=== PATIENT | male | born 1945 | race Caucasian/White ===

== ENCOUNTER 2016-10-28 05:34 | Observation (INO) ==
[2016-10-28] MEDS ORDERED: 0.9 % Sodium Chloride 1,000 ML IVC SCH ×2 (05:45→08:27)
--- NOTE | 2016-10-28 05:49 | Emergency Department Note ---
Disposition Clinical Impression: CLL (chronic lymphocytic leukemia), Diabetes, Debility, UTI (urinary tract infection), Dehydration, Lung cancer, Leukocytosis, Vertigo Disposition: Admitted As Inpatient Condition: Fair Referrals: Jaret Chu MD [Primary Care Provider] - Forms: ED Satisfaction Letter Time of Disposition: 07:28 (ulisses [facility] OBSV) Dizziness HPI - General Chief Complaint: ED Dizziness Stated Complaint: dizzy and weak Time Seen by Provider: 10/28/16 05:35 Source: patient Mode of arrival: ambulatory Limitations: no limitations Nursing Notes Reviewed: Yes Vital Signs Reviewed: Yes - History of Present Illness HPI Narrative: 70-year-old male recently hospitalized for pneumonia UTI and possible sepsis who presents to the emergency room is now having vertiginous type symptoms that been going on for the past day to the point now where he is unable to get up and move about denies shortness of breath chest pain cough cold or flu symptomsI just do not feel well he denies though anything new headache any neck pain neck stiffness any weakness in the extremities denies any other rashes or lesions currently getting antibiotics iv at home According to family patient has multiple types of cancer not receive chemotherapy this week and was also supposed to have a PET scan this past week Pt Subjective Complaint: weakness Onset (ago): day(s) Timing: gradual onset Description: sense of movement History of similar episodes: No History of trauma: No Severity: moderate Improves with: remaining still Worsens with: movement Associated symptoms: Reports: nausea, other (vertgo). Denies: ataxia, chest pain, confusion, diaphoresis, fever, chills, malaise, rash, shortness of breath , syncope, weakness, vision changes, vomiting, palpitations - Related Data Home Medications Medication Instructions Recorded Confirmed Clopidogrel [Plavix] 75 mg PO DAILY 09/24/14 10/28/16 Ondansetron HCl [Zofran] 4 mg PO Q4-6H PRN 01/06/15 10/28/16 Docusate [Colace] 100 mg PO DAILY 08/28/15 10/28/16 Guaifenesin [Mucinex] 600 mg PO BID 08/28/15 10/28/16 Lactobacillus Acidophilus 1 mg PO DAILY 08/28/15 10/28/16 [Acidophilus Probiotic] Lactulose [Kristalose] 20 gm PO AD 08/28/15 10/28/16 Loratadine [Claritin] 10 mg PO DAILY 08/28/15 10/28/16 Pantoprazole Sodium [Protonix] 40 mg PO DAILY 08/28/15 10/28/16 Polyethylene Glycol 1000 500 gm PO DAILY 08/28/15 10/28/16 [Polyethylene Glycol] Albuterol Sulfate [Albuterol 1 puff IH AD 10/24/15 10/28/16 Inhaler] Potassium Chloride [Klor-Con 10] 10 meq PO DAILY 04/18/16 10/28/16 glipiZIDE [Glucotrol] 2.5 mg PO BIDWM 04/18/16 10/28/16 Furosemide [Lasix] 20 mg PO DAILY 06/07/16 10/28/16 LORazepam [Ativan] 1 mg PO TID PRN 10/19/16 10/28/16 Aspirin [Lo-Dose Aspirin EC] 81 mg PO DAILY 10/21/16 10/28/16 Previous Rx's Medication Instructions Recorded Budesonide/Formoterol 160/4.5 2 puff IH BID #1 inhaler 09/24/14 [Symbicort] Tiotropium [Spiriva] 18 mcg IH DAILY #1 inh 09/24/14 dilTIAZem HCl [Cardizem] 60 mg PO Q8HR #60 tablet 09/24/14 Atorvastatin [Lipitor] 80 mg PO HS #30 tablet 07/05/15 Metoprolol [Lopressor] 50 mg PO BID #60 tablet 07/05/15 Nitroglycerin 0.4 mg SL Q5MIN PRN #30 tab.subl 07/05/15 Doxycycline 100 mg PO BID #14 10/24/16 Uyuhwkuvzxmt-Mfbp-Lznnuyge,Iso 3.375 gm IV Q8H #21 froz.piggy 10/24/16 [Zosyn 3.375 gm/50 ml Galaxy] Allergies Allergy/AdvReac Type Severity Reaction Status Date / Time ipratropium [From DuoNeb] AdvReac Vomiting Verified 10/28/16 05:40 roflumilast [From Daliresp] AdvReac Vomiting Verified 10/28/16 05:40 All systems ED: reviewed and negative except as stated. Review of Systems: As Per HPI Constitutional: Reports: weakness. Denies: fever, chills Eyes: Denies: eye pain, eye discharge ENT ED: Denies: ear pain, throat pain Cardiovascular: Denies: chest pain, palpitations Respiratory: Denies: cough, dyspnea, wheezes Gastrointestinal: Denies: abdominal pain, nausea, vomiting Genitourinary: Denies: urgency, dysuria, frequency Musculoskeletal: Denies: back pain, neck pain Integumentary: Denies: rash, abrasion Neurological: Reports: weakness, vertigo. Denies: headache Psychiatric: Denies: anxiety, depression Endocrine: Denies: fatigue Hematological/Lymphatic: Reports: easy bruising. Denies: easy bleeding Allergic/Immunologic: Denies: facial swelling Past Medical History - Past Medical History Attestation: Yes The following information was validated with the patient. Source: patient, old records reviewed, obtained from family, nursing notes reviewed Medical history: Reports: arthritis, cancer (Lung cancer multiple sites CLL skin cancer), CHF, COPD, coronary artery disease, GERD, hyperlipidemia, hypertension, myocardial infarction, renal disease, other Surgical history: Reports: appendectomy, other Psychiatric history: Reports: no psych history - Social History Smoking Status: Former smoker Smokeless Tobacco Status: No Alcohol use: Reports: none Drug use: Reports: none Physical Exam - General Limitations: no limitations General appearance: alert, in no apparent distress - Head Head exam: atraumatic, normocephalic, normal inspection - Eye Eye exam: Present: normal appearance, PERRL, EOMI - ENT ENT exam: normal exam, normal oropharynx, mucous membranes moist, TM's normal bilaterally, normal external ear exam, other (waxy skin) - Neck Neck exam: Present: normal inspection, full ROM, trachea midline - Chest Chest inspection: Present: normal inspection, symmetric chest wall rise - Respiratory Respiratory exam: Present: normal lung sounds bilaterally - Cardiovascular Cardiovascular exam: Present: regular rate, normal rhythm, normal heart sounds - Abdominal Exam Abdominal exam: Present: soft, Non-Tender, normal bowel sounds. Absent: mass, pulsatile mass - Extremities Exam Extremities exam: Present: normal inspection, full ROM, normal capillary refill , other (PICC line left upper arm). Absent: tenderness, pedal edema, joint swelling, calf tenderness - Back Exam Back exam: Present: normal inspection, full ROM. Absent: muscle spasm - Neurological Exam Neurological exam: Present: alert, oriented X3, CN II-XII intact - Psychiatric Psychiatric exam: Present: normal affect, normal mood - Skin Skin exam: Present: dry, intact, normal color, other (moist almost waxy) Course Course Narrative: Patient seen and examined laboratory data ordered CT of the head ordered - Reevaluation(s) Reevaluation #1: Spoke with Dr. Elizalde explained the findings his recent hospitalization he agreed he has asked that we do add Rocephin onto the antibiotics that he is already receiving at this time which we will go ahead and start having already received the vancomycin here in the ER and continue with the meclizine Vital Signs Temperature 98.8 F 10/28/16 05:35 Pulse Rate 88 10/28/16 05:35 Respiratory Rate 16 10/28/16 05:35 Blood Pressure 149/74 10/28/16 05:35 O2 Sat by Pulse Oximetry 92 10/28/16 05:35 Temperature 98.8 F 10/28/16 05:35 Pulse Rate 96 10/28/16 06:26 Respiratory Rate 19 10/28/16 06:26 Blood Pressure 154/72 10/28/16 06:26 O2 Sat by Pulse Oximetry 92 10/28/16 06:26 Oxygen Delivery Oxygen Delivery Nasal Cannula Dizziness - MDM Narrative Medical decision making narrative: Metabolic anemic infectious etiologies - Differential Diagnosis Likely: vertebral basilar insufficiency, acute vestibular neuronitis - Medical Records Medical records reviewed: Yes I reviewed the patient's medical records. - Lab Data Lab results reviewed: Yes I reviewed the patient's lab results. Lab Results 10/28/16 Range/Units 06:29 VBG Lactic Acid 1.4 (0.5-2.2) mmol/L - Radiology Data Radiology results reviewed: Yes I reviewed the patient's radiology results. - EKG Data EKG attestation: Yes I reviewed and interpreted this EKG. EKG results narrative: EKG sinus tach rate of 101 NV 138 QRS 100 QT 313 axis LXXIV EKG shows evidence of appears to be consistent with previous myocardial infarction posterior extension similar to the EKG from 10/21/2016 with T waves now inverted in V5 and V6 at which time they were upright Critical Care Time Critical Care Time: No NIH Stroke Scale - Level of Consciousness LOC: Drowsy, but arousable - LOC Questions LOC Questions: Answers both correctly - LOC Commands LOC Commands: Performs both correctly - Best Gaze Best Gaze: Normal - Visual Visual: No visual loss - Facial Palsy Facial Palsy: Normal - Motor Arms Motor Arm-Left: No drift for 10 seconds Motor Arm-Right: No drift for 10 seconds - Motor Legs Motor Leg-Left: Drift, does NOT hit bed Motor Leg-Right: Drift, does NOT hit bed - Limb Ataxia Limb Ataxia: Absent of affected limb too weak to perform exam - Sensory Sensory: Normal - Best Language Best Language: No aphasia - Dysarthria Dysarthria: Normal - Extinction and Inattention Extinction and Inattention: Normal - NIHSS Total Score NIHSS Total Score: 3
[2016-10-28 06:38] LABS: Hematocrit 30.9 % (37.5-50.1); Hemoglobin 9.2 g/dL (12.9-16.9); Mean Corpuscular HGB Conc 29.8 g/dL (31.6-35.5); Mean Corpuscular Hemoglobin 26.7 pg (28.0-33.3); Mean Corpuscular Volume 89.6 fL (83.0-100.0); Mean Platelet Volume 9.5 fL (9.4-12.4); Nucleated Red Blood Cells 0.1 /100 WBC (0); Platelet Count 208 K/mcL (140-400); Red Blood Count 3.45 M/mcL (4.19-5.50); Red Cell Distribution Width 17.6 % (11.5-14.5)
[2016-10-28 06:45] LABS: INR 1.2; Prothrombin Time 12.6 Seconds (9.4-12.1)
[2016-10-28] MEDS ORDERED: Vancomycin 1,000 MG in D5% in Water 250 ML IVPB ONE (06:45)
[2016-10-28 06:48] LABS: Activated Partial Thrombo Time 37.9 Seconds (26.0-36.0)
[2016-10-28 07:00] LABS: Alanine Aminotransferase 26 Units/L (0-55); Albumin 2.7 g/dL (3.5-5.0); Albumin/Globulin Ratio 0.7 (1.1-2.2); Alkaline Phosphatase 205 Units/L (38-126); Aspartate Amino Transferase 19 Units/L (5-34); BUN/Creatinine Ratio 16 (6-26); Bilirubin,Total 0.3 mg/dL (0.2-1.2); Blood Urea Nitrogen 21 mg/dL (8-26); Calcium 9.5 mg/dL (8.6-10.8); Carbon Dioxide 26 mEq/L (19-29); Chloride 105 mEq/L (98-109); Globulin 4.1 g/dL (2.4-3.5); Glucose 134 mg/dL (70-99); Osmolality,Calculated 305 (280-300); Potassium 4.3 mEq/L (3.5-4.5); Sodium 145 mEq/L (136-145); Total Protein 6.8 g/dL (6.0-8.3); eGFR For African Americans > 60 (> 60); eGFR For Non-African Americans 52 (> 60)
[2016-10-28 07:19] LABS: Bilirubin,Urine Negative (Negative); Blood,Urine Trace-intact (Negative); Clarity,Urine Cloudy (Clear); Color,Urine Yellow (Yellow); Glucose,Urine (UA) Normal (Normal); Ketones,Urine Negative (Negative); Leukocyte Esterase,Urine Small (Negative); Nitrite,Urine Negative (Negative); Protein,Urine 30 mg/dL (Neg-Trace); Specific Gravity,Urine 1.025 (1.010-1.025); Urobilinogen,Urine Normal (Normal)
[2016-10-28 07:19] LABS: Lymphocytes # 6.3 K/mcL (0.6-4.6); Monocytes # 0.3 K/mcL (0.0-1.3); Neutrophils # 7.1 K/mcL (1.6-8.9)
[2016-10-28 07:20] LABS: Rouleaux Present (Not Present)
[2016-10-28 07:25] LABS: Bacteria,Urine Moderate per hpf (None-Few); Hyaline Casts,Urine Few per lpf (None-Few); Mucus,Urine Few (Few); Squamous Epithelial Cell,Urine Few per lpf (None-Few); WBC,Urine 30-50 per hpf (0-3)
[2016-10-28] MEDS ORDERED: Nitroglycerin 0.4 MG TAB.SUBL SL PRN (08:27)
[2016-10-28] MEDS ORDERED: D5% in Water 1,000 ML IVC PRN (08:27)
[2016-10-28] MEDS ORDERED: NON-FORMULARY MEDICATION 1 EACH EACH (Piperacillin-Tazo-Dextrose,Iso [Zosyn 3.375 Gm/50 Ml IV SCH (08:27)
[2016-10-28] MEDS ORDERED: dilTIAZem HCl 60 MG TABLET PO SCH (08:27)
[2016-10-28] MEDS ORDERED: *HR* Dextrose 50 % in Water (Syg) 50 ML SYRINGE IVP PRN (08:27)
[2016-10-28] MEDS ORDERED: Naloxone 0.4 MG/ML INJ IVP PRN (08:27)
[2016-10-28] MEDS ORDERED: Dextrose Gel 15 GM PO PRN ×2 (08:27)
[2016-10-28] MEDS ORDERED: Ondansetron 4 MG/2 ML VIAL IVP PRN (08:27)
[2016-10-28] MEDS ORDERED: Ibuprofen 400 MG TABLET PO PRN (08:27)
[2016-10-28] MEDS ORDERED: Acetaminophen 325 MG TABLET PO PRN (08:27)
[2016-10-28] MEDS ORDERED: Lactulose Oral Soln 20 GM/30 ML UDC PO PRN (09:00)
[2016-10-28] MEDS ORDERED: Furosemide 20 MG TABLET PO SCH (09:00)
[2016-10-28] MEDS: Doxycycline 100 MG CAPSULE PO SCH ×2 (09:56→19:38)
[2016-10-28] MEDS: Aspirin Enteric Coated 81 MG Tablet PO SCH (09:56)
[2016-10-28] MEDS: Lactobacillus 1 EACH CAP.SPRINK PO SCH (09:57)
[2016-10-28] MEDS ORDERED: Budesonide/Formoterol 160/4.5 MDI IH SCH (10:00)
[2016-10-28] MEDS ORDERED: Vancomycin 500 MG in D5% in Water (Mini-Bag+) 100 ML IVPB ONE (10:00)
[2016-10-28] MEDS: *HR* GlipiZIDE 5 MG TABLET PO SCH ×2 (10:06→19:22)
[2016-10-28] MEDS: *HR* LORazepam 1 MG TABLET PO PRN (10:06)
[2016-10-28] MEDS: Insulin LISPRO 300 UNITS/3 ML VIAL SQ SCH ×3 (10:14→16:46)
[2016-10-28] MEDS ORDERED: Levalbuterol Neb 1.25 MG/3 ML IH SCH (11:30)
[2016-10-28] MEDS: Tiotropium 18 MCG inhalation IH SCH (11:47)
--- NOTE | 2016-10-28 11:50 | Internal Med History&Physical ---
Date of Encounter: 10/28/16 Time of Encounter: 10:55 Assessment and Plan (1) Vertigo Current visit: Yes Status: Acute CT head was unremarkable. He will be given meclizine when necessary. IV fluids will be given. (2) Heart failure Current visit: Yes Status: Chronic He will be given IV Lasix and started on isosorbide. Metoprolol will be continued. 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 We will recheck in a.m. Suspect due primarily to chronic kidney disease. Qualifiers: Anemia type: unspecified type Qualified Code(s): D64.9 - Anemia, unspecified (4) CKD (chronic kidney disease) stage 3, GFR 30-59 ml/min Current visit: Yes Status: Chronic We will monitor renal indices periodically. (5) UTI (urinary tract infection) Current visit: Yes Status: Acute Continue doxycycline and IV Zosyn. He was also ordered vancomycin for possible pneumonia. Lactobacillus has been ordered. Qualifiers: Urinary tract infection type: site unspecified Hematuria presence: with hematuria Qualified Code(s): N39.0 - Urinary tract infection, site not specified; R31.9 - Hematuria, unspecified (6) Diabetes Current visit: Yes Status: Chronic Hemoglobin A1c was 6.7% on 07/11/2016. Continue Glucotrol and Accu-Cheks with SSI. Qualifiers: Diabetes mellitus type: type 2 Diabetes mellitus complication status: with kidney complications Diabetes mellitus complication detail: with chronic kidney disease Diabetes mellitus supervisor long goods insulin use: without senior care use Chronic kidney disease stage: stage 3 (moderate) Qualified Code(s): E11.22 - Type 2 diabetes mellitus with diabetic chronic kidney disease; N18.3 - Chronic kidney disease, stage 3 (moderate) Internal Medicine - H&P: HPI Chief complaint: Vertigo Admitted From: Home Plans for Post Hospital Care: Home History of present illness: Mr. Ruvalcaba is a 70 year old male who came to emergency room stating he had vertigo symptoms approximately 0300 as he attempted to go to the bathroom. He was unable to walk and was helped back to bed by the home health nurse. He was given a meclizine with minimal improvement. He came to emergency room and was evaluated and admitted to [facility] floor for ongoing care needs. He denies previous similar episodes recently. He has not had URI symptoms such as sore throat,earache etc. He denies nausea vomiting or diarrhea. Past Med Surg Social Fam HX - Past Medical History Medical history: arthritis, cancer (Lung cancer multiple sites CLL skin cancer) , CHF, COPD, coronary artery disease, GERD, hyperlipidemia, hypertension, myocardial infarction, renal disease, other Psychiatric history: no psych history - Past Surgical History Surgical History: appendectomy, other - Social History Smoking Status: Former smoker Smokeless Tobacco Status: No Alcohol use: none Drug use: none - Family History Father Hx Family Endocrine Disorder: Yes (diabetes) Mother Adopted: No Twin of Family Member: Yes, Fraternal Living Status: Still Living Hx Family Cardiac Disorders: Yes Hx Family Respiratory Disorders: No Hx Family Cancer: No Hx Family GI Disorders: No Hx Family Endocrine Disorder: Yes (diabetes) Hx Family Neuromuscular Disorders: No Hx Family Neurologic Disorders: No Hx Family HEENT Disorders: No Hx Family Autoimmune Disorders: No Internal Medicine - H&P: Meds Budesonide/Formoterol 160/4.5 [Symbicort] 2 puff IH BID #1 inhaler 09/24/14 [Rx] Clopidogrel [Plavix] 75 mg PO DAILY 09/24/14 [History] Tiotropium [Spiriva] 18 mcg IH DAILY #1 inh 09/24/14 [Rx] dilTIAZem HCl [Cardizem] 60 mg PO Q8HR #60 tablet 09/24/14 [Rx] Ondansetron HCl [Zofran] 4 mg PO Q4-6H PRN 01/06/15 [History] Atorvastatin [Lipitor] 80 mg PO HS #30 tablet 07/05/15 [Rx] Metoprolol [Lopressor] 50 mg PO BID #60 tablet 07/05/15 [Rx] Nitroglycerin 0.4 mg SL Q5MIN PRN #30 tab.subl 07/05/15 [Rx] Docusate [Colace] 100 mg PO DAILY 08/28/15 [History] Guaifenesin [Mucinex] 600 mg PO BID 08/28/15 [History] Lactobacillus Acidophilus [Acidophilus Probiotic] 1 mg PO DAILY 08/28/15 [ History] Lactulose [Kristalose] 20 gm PO AD 08/28/15 [History] Loratadine [Claritin] 10 mg PO DAILY 08/28/15 [History] Pantoprazole Sodium [Protonix] 40 mg PO DAILY 08/28/15 [History] Polyethylene Glycol 1000 [Polyethylene Glycol] 500 gm PO DAILY 08/28/15 [History ] Albuterol Sulfate [Albuterol Inhaler] 1 puff IH AD 10/24/15 [History] Potassium Chloride [Klor-Con 10] 10 meq PO DAILY 04/18/16 [History] glipiZIDE [Glucotrol] 2.5 mg PO BIDWM 04/18/16 [History] Furosemide [Lasix] 20 mg PO DAILY 06/07/16 [History] LORazepam [Ativan] 1 mg PO TID PRN 10/19/16 [History] Aspirin [Lo-Dose Aspirin EC] 81 mg PO DAILY 10/21/16 [History] Doxycycline 100 mg PO BID #14 10/24/16 [Rx] Ltgrgciypvkc-Gxvm-Jsepgvoz,Iso [Zosyn 3.375 gm/50 ml Galaxy] 3.375 gm IV Q8H # 21 froz.piggy 10/24/16 [Rx] 3 Allergy/AdvReac Type Severity Reaction Status Date / Time ipratropium [From DuoNeb] AdvReac Vomiting Verified 10/28/16 05:40 roflumilast [From Daliresp] AdvReac Vomiting Verified 10/28/16 05:40 All Systems PM: A 10-system review of systems was performed and is negative for pertinent findings except as documented above in the HPI. Review of systems: Gen.: He states his weight has been stable the past few months Cardiovascular: He has history of hypertension. He reports 2 myocardial infarctions in the past with most recent one June 2015. He had a LAVELLE placed in the mid RCA at the time. There was an occluded proximal RCA in-stent restenosis which was felt to be the culprit lesion. There were previous stents seen in the proximal and mid RCA. LVEF was 55%. He had an echocardiogram June 2015 which showed LVEF of 45-50% with mild LV diastolic dysfunction. There is no significant valvular dysfunction seen. He denies DVT or pulmonary embolus Respiratory: He smoked from age [age] up to 2 packs per day. He has a diagnosis of COPD and wears oxygen at home. He has been diagnosed with GOMEZ but CPAP was removed by the supply company because of noncompliant usage. GI: Denies disorders of his liver gallbladder or exocrine pancreas : He has chronic kidney disease stage III and follows with a [place] systems design engineer. He has a kidney stone. He denies other kidney or bladder disorders. Neurologic: He denies large distribution strokes or seizures. Endocrine: He was diagnosed with DM 2 approximately 2012. He has hyperlipidemia but no known thyroid disease. Hematology/oncology: He was diagnosed with CLL approximately 2 years ago and squamous cell lung cancer approximately 3 years ago. The lung cancer is stage IV. He had squamous cell cancer removed from his lower lip 2013. He was diagnosed with neuroendocrine carcinoma the scalp in 2016. He follows with [facility] oncologist. He has anemia. Psychiatric: He has anxiety but no significant depression or other mental health issues Musk skeletal: He has arthritis but no other documented bone joint or muscle disorders. - Constitutional Vitals: Temp Pulse Resp BP Pulse Ox 97.6 F 98 14 133/65 94 10/28/16 08:25 10/28/16 08:25 10/28/16 08:27 10/28/16 08:27 10/28/16 08:25 Exam: Gen.: He is a well-developed well-nourished male who appears slightly dyspneic at rest HEENT: Head is atraumatic and normocephalic. Eyes: EOMI. There is no scleral icterus. Mouth: Mucosa is slightly dry Neck: There is no thyromegaly or adenopathy noted. Heart: Regular without murmurs gallops or ectopics Lungs: He has diminished breath sounds diffusely. No wheezes are heard. Abdomen: Soft and nontender. No masses or guarding are noted. Extremities: He has edema in the ryan-malleolar area bilaterally. There is no edema of the lower anterior mast. Dorsalis pedis and posterior tibial pulses are trace palpable bilaterally. Neurologic: Mental status: He is talkative and seems to be a fair to good historian. Cranial nerves: Smile is symmetric. Forehead wrinkles bilaterally. Tongue protrudes midline. EOMI. Motor: There is no pronator drift. Cerebellar: Fair to nose is intact bilaterally. Skin: Warm and dry. He has multiple ecchymosis on his arms leg and torso. Internal Med - H&P Results - Labs CBC & Chem 7: 10/28/16 06:29 10/28/16 06:29
[2016-10-28] MEDS: Isosorbide MONOnitrate (24 HR) 30 MG TAB.ER.24H PO SCH (12:17)
[2016-10-28] MEDS: Furosemide 40 MG/4 ML VIAL IVP SCH ×2 (12:17→19:39)
[2016-10-28] MEDS: Piperacillin/Tazobactam 3.375 GM in D5% in Water (Mini-Bag+) 100 ML IVPB SCH ×2 (13:31→19:40)
[2016-10-28] MEDS: Levalbuterol Neb 1.25 MG/3 ML IH SCH ×3 (13:36→20:32)
[2016-10-28] MEDS: Budesonide/Formoterol 160/4.5 MDI IH SCH ×2 (13:39→20:31)
[2016-10-28] MEDS ORDERED: Vancomycin 1,250 MG in D5% in Water 250 ML IVPB SCH (14:00)
[2016-10-28] MEDS: *HR* Digoxin 0.125 MG TABLET PO SCH (15:13)
[2016-10-28 17:35] LABS: ABG HCO3 33 mEq/L (21-27); ABG PCO2 63 mmHg (35-45); ABG PH 7.32 pH Units (7.32-7.45); ABG PO2 67 mmHg (85-104)
[2016-10-28 17:36] LABS: ABG Base Excess 6.5 mEq/L (-2.0 to 3.0); ABG Oxygen Saturation 91 % (95-98); ABG TCO2 34.6 mEq/L (20-26); Blood Gas Liter Flow 4 L/MIN
[2016-10-29] MEDS: Levalbuterol Neb 1.25 MG/3 ML IH SCH ×3 (00:16→08:48)
[2016-10-29 02:03] LABS: Basophils % 0.3 %; Eosinophils # 0.2 K/mcL (0.0-0.6); Eosinophils % 1.5 %; Hematocrit 27.2 % (37.5-50.1); Hemoglobin 8.2 g/dL (12.9-16.9); Immature Granulocytes % 1.2 % (0-4); Lymphocytes # 6.5 K/mcL (0.6-4.6); Lymphocytes % 52.6 %; Mean Corpuscular HGB Conc 30.1 g/dL (31.6-35.5); Mean Corpuscular Hemoglobin 26.5 pg (28.0-33.3); Mean Corpuscular Volume 87.7 fL (83.0-100.0); Monocytes # 0.8 K/mcL (0.0-1.3); Monocytes % 6.2 %; Neutrophils # 4.7 K/mcL (1.6-8.9); Platelet Count 214 K/mcL (140-400); Red Cell Distribution Width 16.9 % (11.5-14.5); Segmented Neutrophils % 38.2 %
[2016-10-29 02:27] LABS: BUN/Creatinine Ratio 16 (6-26); Blood Urea Nitrogen 19 mg/dL (8-26); Carbon Dioxide 33 mEq/L (19-29); Chloride 97 mEq/L (98-109); Glucose 69 mg/dL (70-99); Osmolality,Calculated 299 (280-300); Potassium 3.4 mEq/L (3.5-4.5); Sodium 144 mEq/L (136-145); eGFR For African Americans > 60 (> 60); eGFR For Non-African Americans 60 (> 60)
[2016-10-29] MEDS: Piperacillin/Tazobactam 3.375 GM in D5% in Water (Mini-Bag+) 100 ML IVPB SCH ×2 (03:57→11:48)
[2016-10-29] MEDS ORDERED: Aminoglycoside Consult 1 EACH MC ONE (07:00)
[2016-10-29] MEDS ORDERED: Vancomycin 1,000 MG in D5% in Water 250 ML IVPB SCH (07:00)
[2016-10-29] MEDS: Lactobacillus 1 EACH CAP.SPRINK PO SCH (07:48)
[2016-10-29] MEDS: Doxycycline 100 MG CAPSULE PO SCH (07:49)
[2016-10-29] MEDS: *HR* LORazepam 1 MG TABLET PO PRN (07:49)
[2016-10-29] MEDS: *HR* Digoxin 0.125 MG TABLET PO SCH (07:49)
[2016-10-29] MEDS: Isosorbide MONOnitrate (24 HR) 30 MG TAB.ER.24H PO SCH (07:49)
[2016-10-29] MEDS: Furosemide 40 MG/4 ML VIAL IVP SCH (07:49)
[2016-10-29] MEDS: Aspirin Enteric Coated 81 MG Tablet PO SCH (07:49)
[2016-10-29] MEDS: *HR* GlipiZIDE 5 MG TABLET PO SCH (07:49)
[2016-10-29] MEDS: Insulin LISPRO 300 UNITS/3 ML VIAL SQ SCH ×2 (07:51→11:53)
[2016-10-29] MEDS: Budesonide/Formoterol 160/4.5 MDI IH SCH (08:48)
[2016-10-29] MEDS: Tiotropium 18 MCG inhalation IH SCH (08:48)
--- NOTE | 2016-10-29 09:52 | Discharge Summary ---
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 (3) Anemia Priority: Secondary Status: Chronic Qualifiers: Anemia type: unspecified type Qualified Code(s): D64.9 - Anemia, unspecified (4) CKD (chronic kidney disease) stage 3, GFR 30-59 ml/min Priority: Secondary Status: Chronic (5) UTI (urinary tract infection) Priority: Secondary Status: Acute Qualifiers: Urinary tract infection type: site unspecified Hematuria presence: with hematuria Qualified Code(s): N39.0 - Urinary tract infection, site not specified; R31.9 - Hematuria, unspecified (6) Diabetes Priority: Secondary Status: Chronic Qualifiers: Diabetes mellitus type: type 2 Diabetes mellitus complication status: with kidney complications Diabetes mellitus complication detail: with chronic kidney disease Diabetes mellitus longterm insulin use: without meterman use Chronic kidney disease stage: stage 3 (moderate) Qualified Code(s): E11.22 - Type 2 diabetes mellitus with diabetic chronic kidney disease; N18.3 - Chronic kidney disease, stage 3 (moderate) - Discharge Medications Prescriptions: Digoxin [Lanoxin] 0.125 mg PO DAILY #30 tab Isosorbide MONOnitrate (24 HR) [Imdur] 30 mg PO DAILY #30 Metoprolol [Lopressor] 100 mg PO BID #60 tablet Home Medications: Budesonide/Formoterol 160/4.5 [Symbicort] 2 puff IH BID #1 inhaler 09/24/14 [Rx] Clopidogrel [Plavix] 75 mg PO DAILY 09/24/14 [History] Tiotropium [Spiriva] 18 mcg IH DAILY #1 inh 09/24/14 [Rx] Ondansetron HCl [Zofran] 4 mg PO Q4-6H PRN 01/06/15 [History] Atorvastatin [Lipitor] 80 mg PO HS #30 tablet 07/05/15 [Rx] Metoprolol [Lopressor] 50 mg PO BID #60 tablet 07/05/15 [Rx] Nitroglycerin 0.4 mg SL Q5MIN PRN #30 tab.subl 07/05/15 [Rx] Docusate [Colace] 100 mg PO DAILY 08/28/15 [History] Guaifenesin [Mucinex] 600 mg PO BID 08/28/15 [History] Lactobacillus Acidophilus [Acidophilus Probiotic] 1 mg PO DAILY 08/28/15 [ History] Lactulose [Kristalose] 20 gm PO AD 08/28/15 [History] Pantoprazole Sodium [Protonix] 40 mg PO DAILY 08/28/15 [History] Polyethylene Glycol 1000 [Polyethylene Glycol] 500 gm PO DAILY 08/28/15 [History ] Albuterol Sulfate [Albuterol Inhaler] 1 puff IH AD 10/24/15 [History] Potassium Chloride [Klor-Con 10] 10 meq PO DAILY 04/18/16 [History] glipiZIDE [Glucotrol] 2.5 mg PO BIDWM 04/18/16 [History] LORazepam [Ativan] 1 mg PO TID PRN 10/19/16 [History] Aspirin [Lo-Dose Aspirin EC] 81 mg PO DAILY 10/21/16 [History] Doxycycline 100 mg PO BID #14 10/24/16 [Rx] Ykohgbiacdmr-Gpjb-Nyqyolsk,Iso [Zosyn 3.375 gm/50 ml Galaxy] 3.375 gm IV Q8H # 21 froz.piggy 10/24/16 [Rx] Digoxin [Lanoxin] 0.125 mg PO DAILY #30 tab 10/29/16 [Rx] Furosemide [Lasix] 40 mg PO DAILY #0 10/29/16 [Rx] Isosorbide MONOnitrate (24 HR) [Imdur] 30 mg PO DAILY #30 10/29/16 [Rx] Loratadine [Claritin] 10 mg PO DAILY PRN #0 10/29/16 [Rx] Metoprolol [Lopressor] 100 mg PO BID #60 tablet 10/29/16 [Rx] Allergies/Adverse Reactions: 3 Allergy/AdvReac Type Severity Reaction Status Date / Time ipratropium [From DuoNeb] AdvReac Vomiting Verified 10/28/16 05:40 roflumilast [From Daliresp] AdvReac Vomiting Verified 10/28/16 05:40 Date of admission: 10/28/16 07:52 Primary care physician: Jaret Chu MD - Patient Status Disposition: Home Health Service Condition: Fair Functional capacity at discharge: uses cane/walker Overall status at discharge: patient is progressing back to baseline - Discharge Instructions Follow Up With: Jaret Chu MD [Primary Care Provider] - 1 week - Diet and Activity Activity: resume usual activities as tolerated Diet: diabetic diet Hospital course: Mr. Ruvalcaba is a 70 year old male who came to emergency room stating he had vertigo symptoms approximately 0300 as he attempted to go to the bathroom. He was unable to walk and was helped back to bed by the home health nurse. He was given a meclizine with minimal improvement. He came to emergency room and was evaluated and admitted to [facility] for ongoing care needs. Initial orders were written by the emergency room physician. I saw him on October 28 and performed the history and physical. He was given prn meclizine and reported no dizziness when I saw him on October 29. Lasix was given IV and he was started on isosorbide and Lanoxin. Metoprolol dose was increased and diltiazem was discontinued. He had over 3000 mL urine output and his dyspnea was improved when I saw him on October 29. He will continue this regimen at discharge. Anemia testing was ordered with results pending time of this dictation. On October 29 he felt stable for discharge home. He will follow with his PCP Dr. Chu within 1 week. - Time Spent with Patient Total time spent providing and/or coordinating discharge services: - Constitutional Vitals: Temp Pulse Resp BP Pulse Ox 97.8 F 89 18 155/65 97 10/29/16 06:49 10/29/16 06:49 10/29/16 08:48 10/29/16 06:49 10/29/16 08:48
--- NOTE | 2016-10-29 09:58 | Physician Discharge Referral ---
Home Health/Hosp Referral Info Transfer to: Home Health Attending Provider: Tonio Provider in Charge Post Discharge: PCP (Jaret Chu M.D.) - Diagnosis (1) Vertigo Priority: Primary Status: Resolved (2) Heart failure Priority: Secondary Status: Chronic (3) Anemia Priority: Secondary Status: Chronic (4) CKD (chronic kidney disease) stage 3, GFR 30-59 ml/min Priority: Secondary Status: Chronic (5) UTI (urinary tract infection) Priority: Secondary Status: Acute (6) Diabetes Priority: Secondary Status: Chronic - Respiratory Orders Oxygen / L per min (2-4 L/m as necessary to keep sat greater than 90%) Smoking Cessation: Smoking cessation has been advised. For more information, call the [place] Tobacco Quit Line at 1-355-RXAW-NOW. - Diet/Nutrition Diet/Nutrition Orders: No Concentrated Sweets - Activity Activity Orders: Walker - Services Needed Following services are medically necessary services: Nursing, Home Health Aide, Physical Therapy, Occupational Therapy - Transfer Medications Prescriptions: Digoxin [Lanoxin] 0.125 mg PO DAILY #30 tab Isosorbide MONOnitrate (24 HR) [Imdur] 30 mg PO DAILY #30 Metoprolol [Lopressor] 100 mg PO BID #60 tablet Home Medications: Budesonide/Formoterol 160/4.5 [Symbicort] 2 puff IH BID #1 inhaler 09/24/14 [Rx] Clopidogrel [Plavix] 75 mg PO DAILY 09/24/14 [History] Tiotropium [Spiriva] 18 mcg IH DAILY #1 inh 09/24/14 [Rx] Ondansetron HCl [Zofran] 4 mg PO Q4-6H PRN 01/06/15 [History] Atorvastatin [Lipitor] 80 mg PO HS #30 tablet 07/05/15 [Rx] Metoprolol [Lopressor] 50 mg PO BID #60 tablet 07/05/15 [Rx] Nitroglycerin 0.4 mg SL Q5MIN PRN #30 tab.subl 07/05/15 [Rx] Docusate [Colace] 100 mg PO DAILY 08/28/15 [History] Guaifenesin [Mucinex] 600 mg PO BID 08/28/15 [History] Lactobacillus Acidophilus [Acidophilus Probiotic] 1 mg PO DAILY 08/28/15 [ History] Lactulose [Kristalose] 20 gm PO AD 08/28/15 [History] Pantoprazole Sodium [Protonix] 40 mg PO DAILY 08/28/15 [History] Polyethylene Glycol 1000 [Polyethylene Glycol] 500 gm PO DAILY 08/28/15 [History ] Albuterol Sulfate [Albuterol Inhaler] 1 puff IH AD 10/24/15 [History] Potassium Chloride [Klor-Con 10] 10 meq PO DAILY 04/18/16 [History] glipiZIDE [Glucotrol] 2.5 mg PO BIDWM 04/18/16 [History] LORazepam [Ativan] 1 mg PO TID PRN 10/19/16 [History] Aspirin [Lo-Dose Aspirin EC] 81 mg PO DAILY 10/21/16 [History] Doxycycline 100 mg PO BID #14 10/24/16 [Rx] Ufjbtqtvuppt-Hiaw-Aownizjn,Iso [Zosyn 3.375 gm/50 ml Galaxy] 3.375 gm IV Q8H # 21 froz.piggy 10/24/16 [Rx] Digoxin [Lanoxin] 0.125 mg PO DAILY #30 tab 10/29/16 [Rx] Furosemide [Lasix] 40 mg PO DAILY #0 10/29/16 [Rx] Isosorbide MONOnitrate (24 HR) [Imdur] 30 mg PO DAILY #30 10/29/16 [Rx] Loratadine [Claritin] 10 mg PO DAILY PRN #0 10/29/16 [Rx] Metoprolol [Lopressor] 100 mg PO BID #60 tablet 10/29/16 [Rx] Allergies/Adverse Reactions: 3 Allergy/AdvReac Type Severity Reaction Status Date / Time ipratropium [From DuoNeb] AdvReac Vomiting Verified 10/28/16 05:40 roflumilast [From Daliresp] AdvReac Vomiting Verified 10/28/16 05:40 Certification: Further, I certify that my clinical findings support that this patient is homebound (i.e. absences from home require considerable and taxing effort and are for medical reasons or mormon services or infrequently or short duration when for other reasons) because: Homebound Reason: Leaving home requires considerable and taxing effort due to condition (Dyspnea on exertion with heart failure) Attestation: My signature below is to certify that this patient is under my care and that I, or nurse practitioner, or a physician's assistant winemaker working with me, has a face-to -face encounter with this patient.
[2016-10-29 10:48] VITALS: BP 118/63
[2016-10-29 16:33] LABS: Folate 12.4 ng/mL (7.0-31.4)
[2016-10-29 17:05] LABS: % Iron Saturation 7 % (20-55); Iron 16 mcg/dL (65-175); Transferrin 168 mg/dL (174-364)
[2016-10-29 17:27] LABS: Ferritin 154 ng/ml (22-275)
--- NOTE | 2016-10-29 17:40 | Electrocardiograph Report ---
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
== END 2016-10-29 12:43 | disposition home health service (06) ==
LOC: EMEROOPIK 05:34 → INPPIK 05:34
PROVIDERS: ADMIT Internal Medicine; ATTEND Internal Medicine

== ENCOUNTER 2016-11-06 14:57 | Observation (INO) ==
[2016-11-06] MEDS ORDERED: 0.9 % Sodium Chloride 500 ML IVC ONE (15:12)
--- NOTE | 2016-11-06 15:16 | Emergency Department Note ---
Disposition Clinical Impression: Altered mental status Qualifiers: Altered mental status type: disorientation Qualified Code(s): R41.0 - Disorientation, unspecified Fever Qualifiers: Fever type: unspecified Qualified Code(s): R50.9 - Fever, unspecified Disposition: Admitted As Inpatient Condition: Good Referrals: NONE,PCP [Non-Partnered Physician] - Forms: ED Satisfaction Letter Time of Disposition: 17:27 Altered Mental Status HPI - General Chief Complaint: ED Altered Mental Status Stated Complaint: ams Time Seen by Provider: 11/06/16 15:10 Source: family, EMS Mode of arrival: EMS Limitations: no limitations Nursing Notes Reviewed: Yes Vital Signs Reviewed: Yes - History of Present Illness HPI Narrative: 70-year-old white male presents with confusion. He was fine when he got up this morning according to his family and caregiver. He did have 4 episodes of diarrhea. around 1 PM he became confused. He felt hot to touch. EMS was called and he was transported here. He is recently been followed by his primary care provider for frequent urination. He had a urinalysis checked last week, they do not know the results. He has been referred to urology. MD complaint: altered mental status, confusion Onset (ago): hour(s) (2) Time: 13:00 Timing confirmed by: family member, caregiver Pain Severity: none Associated symptoms: Reports: diarrhea - Related Data Home Medications Medication Instructions Recorded Confirmed Albuterol Sulfate [Albuterol 1 - 2 puff IH Q4HR PRN 11/06/16 11/06/16 Inhaler] Aspirin [Lo-Dose Aspirin EC] 81 mg PO DAILY 11/06/16 11/06/16 Budesonide/Formoterol 160/4.5 2 puff IH BIDR 11/06/16 11/06/16 [Symbicort 160/4.5] Clopidogrel [Plavix] 75 mg PO DAILY 11/06/16 11/06/16 Digoxin [Lanoxin] 0.125 mg PO DAILY 11/06/16 11/06/16 Docusate [Colace] 100 mg PO DAILY 11/06/16 11/06/16 Furosemide [Lasix] 40 mg PO DAILY 11/06/16 11/06/16 GlipiZIDE [Glucotrol Xl] 2.5 mg PO BID 11/06/16 11/06/16 Guaifenesin [Guaifenesin ER] 600 mg PO BID 11/06/16 11/06/16 Isosorbide MONOnitrate [Isosorbide 30 mg PO DAILY 11/06/16 11/06/16 Mononitrate] LORazepam [Ativan] 1 mg PO TID PRN 11/06/16 11/06/16 Lactulose [Enulose] 10 gm PO DAILY PRN 11/06/16 11/06/16 Lisinopril [Zestril] 5 mg PO DAILY 11/06/16 11/06/16 Loratadine [Allergy Relief] 10 mg PO DAILY PRN 11/06/16 11/06/16 Metoprolol [Lopressor] 100 mg PO BID 11/06/16 11/06/16 Ondansetron HCl [Zofran] 4 mg PO Q6H 11/06/16 11/06/16 Potassium Chloride [Klor-Con 10] 10 meq PO DAILY 11/06/16 11/06/16 Ranitidine HCl [Zantac] 40 mg PO HS 11/06/16 11/06/16 Tiotropium [place] [Spiriva 4 gm IH DAILY 11/06/16 11/06/16 Respimat] Allergies Allergy/AdvReac Type Severity Reaction Status Date / Time ipratropium [From DuoNeb] AdvReac Vomiting Verified 10/28/16 05:40 roflumilast [From Daliresp] AdvReac Vomiting Verified 10/28/16 05:40 All systems ED: reviewed and negative except as stated. Constitutional: Denies: fever Eyes: Denies: eye pain, eye discharge, vision change ENT ED: Denies: ear pain, throat pain Cardiovascular: Denies: chest pain Respiratory: Denies: cough, dyspnea Gastrointestinal: Reports: diarrhea. Denies: abdominal pain, nausea, vomiting Genitourinary: Reports: frequency. Denies: urgency, dysuria, hematuria Musculoskeletal: Denies: back pain Neurological: Reports: weakness. Denies: headache Past Medical History - Past Medical History Medical history: Reports: arthritis, cancer, CHF, COPD, coronary artery disease , GERD, hyperlipidemia, hypertension, myocardial infarction, renal disease, other Surgical history: Reports: appendectomy, other Psychiatric history: Reports: no psych history - Social History Smoking Status: Former smoker Smokeless Tobacco Status: No Alcohol use: Reports: none Drug use: Reports: none Physical Exam - General Limitations: no limitations General appearance: alert, in no apparent distress - Head Head exam: atraumatic, normocephalic - Eye Eye exam: Present: PERRL, EOMI. Absent: scleral icterus, conjunctival injection - ENT ENT exam: mucous membranes dry, TM's normal bilaterally - Neck Neck exam: Present: normal inspection, full ROM, trachea midline. Absent: tenderness, meningismus, lymphadenopathy - Respiratory Respiratory exam: Present: normal lung sounds bilaterally. Absent: respiratory distress, wheezes - Cardiovascular Cardiovascular exam: Present: regular rate, normal rhythm, normal heart sounds - Abdominal Exam Abdominal exam: Present: soft, Non-Tender, normal bowel sounds. Absent: organomegaly, mass - Extremities Exam Extremities exam: Present: normal inspection, full ROM, normal capillary refill. Absent: calf tenderness - Back Exam Back exam: Absent: CVA tenderness (R), CVA tenderness (L) - Neurological Exam Neurological exam: Present: alert, oriented X3. Absent: motor sensory deficit - Psychiatric Psychiatric exam: Present: normal affect, normal mood - Skin Skin exam: Present: warm, dry, intact Course Vital Signs Temperature 103.0 F H 11/06/16 14:58 Pulse Rate 108 11/06/16 14:58 Respiratory Rate 20 11/06/16 14:58 Blood Pressure 112/63 11/06/16 14:58 O2 Sat by Pulse Oximetry 92 11/06/16 14:58 Temperature 100.4 F H 11/06/16 16:28 Pulse Rate 103 11/06/16 16:28 Respiratory Rate 20 11/06/16 16:28 Blood Pressure 106/51 11/06/16 16:28 O2 Sat by Pulse Oximetry 93 11/06/16 16:28 Oxygen Delivery Oxygen Delivery Nasal Cannula Altered Mental Status - MDM Narrative Medical decision making narrative: Differential includes but is not limited to urosepsis, dehydration, hypoglycemia , hyperglycemia, pneumonia, meningitis - Lab Data Lab results reviewed: Yes I reviewed the patient's lab results. Result diagrams: 11/06/16 15:36 11/06/16 15:36 Lab Results 11/06/16 11/06/16 11/06/16 Range/Units 15:28 15:36 15:36 WBC 23.3 H (4.3-11.1) K/mcL RBC 4.00 L (4.19-5.50) M/mcL Hgb 10.4 L (12.9-16.9) g/dL Hct 34.3 L (37.5-50.1) % MCV 85.8 (83.0-100.0) fL MCH 26.0 L (28.0-33.3) pg MCHC 30.3 L (31.6-35.5) g/dL RDW 16.6 H (11.5-14.5) % Plt Count 270 (140-400) K/mcL MPV 10.2 (9.4-12.4) fL Immature Gran % 1.3 (0-4) % Seg Neutrophils % 41.1 % Lymphocytes % 53.1 % Monocytes % 3.1 % Eosinophils % 1.0 % Basophils % 0.4 % Neutrophils # 9.6 H (1.6-8.9) K/mcL Lymphocytes # 12.4 H (0.6-4.6) K/mcL Monocytes # 0.7 (0.0-1.3) K/mcL Eosinophils # 0.2 (0.0-0.6) K/mcL Basophils # 0.1 (0.0-0.2) K/mcL Nucleated RBCs/100 WBC 0.1 H (0) /100 WBC VBG Lactic Acid (0.5-2.2) mmol/L Sodium 138 (136-145) mEq/L Potassium 4.5 (3.5-4.5) mEq/L Chloride 97 L (98-109) mEq/L Carbon Dioxide 27 (19-29) mEq/L BUN 29 H (8-26) mg/dL Creatinine 1.19 (0.72-1.25) mg/dL Est GFR ( Amer) > 60 (> 60) Est GFR (Non-Af Amer) > 60 (> 60) BUN/Creatinine Ratio 24 (6-26) Glucose 104 H (70-99) mg/dL Calculated Osmolality 292 (280-300) Calcium 9.2 (8.6-10.8) mg/dL Total Bilirubin 0.5 (0.2-1.2) mg/dL AST 46 H (5-34) Units/L ALT 47 (0-55) Units/L Alkaline Phosphatase 256 H (38-126) Units/L Serum Total Protein 6.6 (6.0-8.3) g/dL Albumin 3.0 L (3.5-5.0) g/dL Globulin 3.6 H (2.4-3.5) g/dL Albumin/Globulin Ratio 0.8 L (1.1-2.2) Urine Color Yellow (Yellow) Urine Clarity Clear (Clear) Urine pH 5.0 (5.0-8.0) pH Units Ur Specific [place] 1.010 (1.010-1.025) Urine Protein Negative (Neg-Trace) mg/dL Urine Glucose (UA) Normal (Normal) mg/dL Urine Ketones Negative (Negative) mg/dL Urine Blood Negative (Negative) Urine Nitrite Negative (Negative) Urine Bilirubin Negative (Negative) Urine Urobilinogen Normal (Normal) mg/dL Ur Leukocyte Esterase Trace H (Negative) Urine Microscopic WBC 15-30 H (0-3) per hpf Ur Squamous Epith Cells Few (None-Few) per lpf Urine Bacteria Few (None-Few) per hpf Urine Mucus Few (Few) Ur Culture Indicated? YES A (NO) Digoxin 1.1 (0.8-2.0) ng/mL 11/06/16 Range/Units 15:36 WBC (4.3-11.1) K/mcL RBC (4.19-5.50) M/mcL Hgb (12.9-16.9) g/dL Hct (37.5-50.1) % MCV (83.0-100.0) fL MCH (28.0-33.3) pg MCHC (31.6-35.5) g/dL RDW (11.5-14.5) % Plt Count (140-400) K/mcL MPV (9.4-12.4) fL Immature Gran % (0-4) % Seg Neutrophils % % Lymphocytes % % Monocytes % % Eosinophils % % Basophils % % Neutrophils # (1.6-8.9) K/mcL Lymphocytes # (0.6-4.6) K/mcL Monocytes # (0.0-1.3) K/mcL Eosinophils # (0.0-0.6) K/mcL Basophils # (0.0-0.2) K/mcL Nucleated RBCs/100 WBC (0) /100 WBC VBG Lactic Acid 1.3 (0.5-2.2) mmol/L Sodium (136-145) mEq/L Potassium (3.5-4.5) mEq/L Chloride (98-109) mEq/L Carbon Dioxide (19-29) mEq/L BUN (8-26) mg/dL Creatinine (0.72-1.25) mg/dL Est GFR ( Amer) (> 60) Est GFR (Non-Af Amer) (> 60) BUN/Creatinine Ratio (6-26) Glucose (70-99) mg/dL Calculated Osmolality (280-300) Calcium (8.6-10.8) mg/dL Total Bilirubin (0.2-1.2) mg/dL AST (5-34) Units/L ALT (0-55) Units/L Alkaline Phosphatase (38-126) Units/L Serum Total Protein (6.0-8.3) g/dL Albumin (3.5-5.0) g/dL Globulin (2.4-3.5) g/dL Albumin/Globulin Ratio (1.1-2.2) Urine Color (Yellow) Urine Clarity (Clear) Urine pH (5.0-8.0) pH Units Ur Specific [place] (1.010-1.025) Urine Protein (Neg-Trace) mg/dL Urine Glucose (UA) (Normal) mg/dL Urine Ketones (Negative) mg/dL Urine Blood (Negative) Urine Nitrite (Negative) Urine Bilirubin (Negative) Urine Urobilinogen (Normal) mg/dL Ur Leukocyte Esterase (Negative) Urine Microscopic WBC (0-3) per hpf Ur Squamous Epith Cells (None-Few) per lpf Urine Bacteria (None-Few) per hpf Urine Mucus (Few) Ur Culture Indicated? (NO) Digoxin (0.8-2.0) ng/mL - Radiology Data Radiology results reviewed: Yes I reviewed the patient's radiology results. - EKG Data EKG attestation: Yes I reviewed and interpreted this EKG. EKG results narrative: Sinus tachycardia, rate of 96, left atrial enlargement, age indeterminate inferior OH, nonspecific ST-T changes. Rhythm strip shows sinus tachycardia with a rate 106, OH interval 130 ms, QRS 90 ms with no other ectopy as interpreted by me. Compared to tracing dated 10/31/16, not significantly changed other than the tachycardia. TPA Checklist - LKW: 3-4.5 hrs Add. Warnings/Precautions Patient/family understanding: The patient/family members have been counseled and understood the risk, benefit , and alternatives of treatment.
[2016-11-06 15:46] LABS: Bilirubin,Urine Negative (Negative); Blood,Urine Negative (Negative); Clarity,Urine Clear (Clear); Color,Urine Yellow (Yellow); Glucose,Urine (UA) Normal (Normal); Ketones,Urine Negative (Negative); Leukocyte Esterase,Urine Trace (Negative); Nitrite,Urine Negative (Negative); Protein,Urine Negative (Neg-Trace); Urobilinogen,Urine Normal (Normal)
[2016-11-06 15:56] LABS: Basophils # 0.1 K/mcL (0.0-0.2); Basophils % 0.4 %; Eosinophils # 0.2 K/mcL (0.0-0.6); Hematocrit 34.3 % (37.5-50.1); Hemoglobin 10.4 g/dL (12.9-16.9); Immature Granulocytes % 1.3 % (0-4); Lymphocytes # 12.4 K/mcL (0.6-4.6); Lymphocytes % 53.1 %; Mean Corpuscular HGB Conc 30.3 g/dL (31.6-35.5); Mean Corpuscular Volume 85.8 fL (83.0-100.0); Mean Platelet Volume 10.2 fL (9.4-12.4); Monocytes # 0.7 K/mcL (0.0-1.3); Monocytes % 3.1 %; Neutrophils # 9.6 K/mcL (1.6-8.9); Nucleated Red Blood Cells 0.1 /100 WBC (0); Platelet Count 270 K/mcL (140-400); Red Cell Distribution Width 16.6 % (11.5-14.5); Segmented Neutrophils % 41.1 %
[2016-11-06 16:18] LABS: Alanine Aminotransferase 47 Units/L (0-55); Albumin/Globulin Ratio 0.8 (1.1-2.2); Alkaline Phosphatase 256 Units/L (38-126); Aspartate Amino Transferase 46 Units/L (5-34); BUN/Creatinine Ratio 24 (6-26); Bilirubin,Total 0.5 mg/dL (0.2-1.2); Blood Urea Nitrogen 29 mg/dL (8-26); Calcium 9.2 mg/dL (8.6-10.8); Carbon Dioxide 27 mEq/L (19-29); Chloride 97 mEq/L (98-109); Globulin 3.6 g/dL (2.4-3.5); Glucose 104 mg/dL (70-99); Osmolality,Calculated 292 (280-300); Potassium 4.5 mEq/L (3.5-4.5); Sodium 138 mEq/L (136-145); Total Protein 6.6 g/dL (6.0-8.3); eGFR For African Americans > 60 (> 60); eGFR For Non-African Americans > 60 (> 60)
[2016-11-06 16:24] LABS: Digoxin 1.1 ng/mL (0.8-2.0)
[2016-11-06 17:15] LABS: Squamous Epithelial Cell,Urine Few per lpf (None-Few); WBC,Urine 15-30 per hpf (0-3)
[2016-11-06 17:16] LABS: Bacteria,Urine Few per hpf (None-Few); Mucus,Urine Few (Few)
[2016-11-06] MEDS ORDERED: *HR* LORazepam 1 MG TABLET PO PRN (18:19)
[2016-11-06] MEDS ORDERED: Naloxone 0.4 MG/ML INJ IVP PRN (18:19)
[2016-11-06] MEDS ORDERED: Vancomycin 1,000 MG in D5% in Water 250 ML IVPB SCH (18:19)
[2016-11-06] MEDS ORDERED: Levofloxacin 500 MG/100 ML 500 MG/100 ML BAG IVPB ONE (18:19)
[2016-11-06] MEDS ORDERED: Ondansetron ODT 4 MG TAB.RAPDIS SL PRN (18:19)
[2016-11-06] MEDS ORDERED: Acetaminophen 325 MG TABLET PO PRN (18:19)
[2016-11-06] MEDS ORDERED: Lactulose Oral Soln 20 GM/30 ML UDC PO PRN (18:19)
[2016-11-06] MEDS ORDERED: Loratadine 10 MG TABLET PO PRN (18:19)
[2016-11-06] MEDS: *HR* GlipiZIDE XL (24 HR) 2.5 MG TABLET PO SCH (20:06)
[2016-11-06] MEDS: 0.9 % Sodium Chloride 1,000 ML IVC SCH (20:06)
[2016-11-06] MEDS: Ondansetron ODT 4 MG TAB.RAPDIS PO SCH (20:07)
[2016-11-06] MEDS ORDERED: D5% in Water 250 ML ONE (20:13)
[2016-11-06] MEDS ORDERED: Famotidine 20 MG TABLET PO SCH (21:00)
[2016-11-06] MEDS: Vancomycin 1,000 MG in D5% in Water 250 ML IVPB SCH (21:03)
[2016-11-06] MEDS: Budesonide/Formoterol 160/4.5 MDI IH SCH (21:18)
[2016-11-07] MEDS ORDERED: *HR* Enoxaparin 40 MG/0.4 ML SYRINGE SQ SCH (06:00)
[2016-11-07] MEDS ORDERED: Aminoglycoside Consult 1 EACH MC ONE (07:27)
[2016-11-07] MEDS: Vancomycin 1,000 MG in D5% in Water 250 ML IVPB SCH (07:37)
[2016-11-07] MEDS: *HR* GlipiZIDE XL (24 HR) 2.5 MG TABLET PO SCH (07:41)
[2016-11-07] MEDS: Ondansetron ODT 4 MG TAB.RAPDIS PO SCH ×3 (07:41→12:07)
[2016-11-07] MEDS: 0.9 % Sodium Chloride 1,000 ML IVC SCH (08:18)
[2016-11-07] MEDS ORDERED: Furosemide 40 MG TABLET PO SCH (09:00)
[2016-11-07] MEDS ORDERED: Aspirin Enteric Coated 81 MG Tablet PO SCH (09:00)
[2016-11-07] MEDS ORDERED: Isosorbide MONOnitrate (24 HR) 30 MG TAB.ER.24H PO SCH (09:00)
[2016-11-07] MEDS ORDERED: (Tiotropium Bromide [Spiriva Respimat] 4 GM) IH SCH (09:00)
[2016-11-07] MEDS ORDERED: *HR* Digoxin 0.125 MG TABLET PO SCH (09:00)
--- NOTE | 2016-11-07 10:03 | Electrocardiograph Report ---
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
[2016-11-07 10:17] VITALS: BP 105/54
[2016-11-07] MEDS: Budesonide/Formoterol 160/4.5 MDI IH SCH (10:35)
--- NOTE | 2016-11-07 12:05 | Internal Med History&Physical ---
Date of Encounter: 11/07/16 Time of Encounter: 11:35 Assessment and Plan (1) Fever Current visit: Yes Status: Acute Suspect viral etiology. UA showed equivocal evidence at most for UTI. Chest x- ray showed no significant change from chest CT scan done 10/28/2016. Since he has recently completed a long course of doxycycline and Zosyn I do not feel additional antibiotics are really indicated this time. Qualifiers: Fever type: unspecified Qualified Code(s): R50.9 - Fever, unspecified (2) Parkinsons disease Current visit: Yes Status: Acute I discussed with the family that medication does not change the course of the disease and observation at this time is probably appropriate. (3) Anemia Current visit: No Status: Chronic He will be started on ferrous sulfate with vitamin C. Qualifiers: Anemia type: iron deficiency Iron deficiency anemia type: unspecified iron deficiency Qualified Code(s): D50.9 - Iron deficiency anemia, unspecified Internal Medicine - H&P: HPI Chief complaint: Diarrhea, confusion Admitted From: Home Plans for Post Hospital Care: Home History of present illness: Mr. Ruvalcaba is a 70 year old male who was brought to emergency room after he was found to have fever at home with multiple episodes of diarrhea. He was evaluated emergency room and had fever of 103 documented. He was admitted to [facility] floor for ongoing care needs. He was discharged from [facility] October 29 after admission the previous day for vertigo. His family reports he has been treated with IV Zosyn and oral doxycycline at home with antibiotics ending November 02. He had concurrent probiotics. He reports he has not had further diarrhea since admission yesterday. He feels back to his baseline. He denies dyspnea or pain. Past Med Surg Social Fam HX - Past Medical History Medical history: arthritis, cancer, CHF, COPD, coronary artery disease, GERD, hyperlipidemia, hypertension, myocardial infarction, renal disease, other Psychiatric history: no psych history - Past Surgical History Surgical History: appendectomy, other - Social History Smoking Status: Former smoker Smokeless Tobacco Status: No Alcohol use: none Drug use: none - Family History Father Hx Family Endocrine Disorder: Yes (diabetes) Mother Adopted: No Twin of Family Member: Yes, Fraternal Living Status: Still Living Hx Family Cardiac Disorders: Yes Hx Family Respiratory Disorders: No Hx Family Cancer: No Hx Family GI Disorders: No Hx Family Endocrine Disorder: Yes (diabetes) Hx Family Neuromuscular Disorders: No Hx Family Neurologic Disorders: No Hx Family HEENT Disorders: No Hx Family Autoimmune Disorders: No Internal Medicine - H&P: Meds Albuterol Sulfate [Albuterol Inhaler] 1 - 2 puff IH Q4HR PRN 11/06/16 [History] Aspirin [Lo-Dose Aspirin EC] 81 mg PO DAILY 11/06/16 [History] Budesonide/Formoterol 160/4.5 [Symbicort 160/4.5] 2 puff IH BIDR 11/06/16 [ History] Clopidogrel [Plavix] 75 mg PO DAILY 11/06/16 [History] Digoxin [Lanoxin] 0.125 mg PO DAILY 11/06/16 [History] Docusate [Colace] 100 mg PO DAILY 11/06/16 [History] Furosemide [Lasix] 40 mg PO DAILY 11/06/16 [History] GlipiZIDE [Glucotrol Xl] 2.5 mg PO BID 11/06/16 [History] Guaifenesin [Guaifenesin ER] 600 mg PO BID 11/06/16 [History] Isosorbide MONOnitrate [Isosorbide Mononitrate] 30 mg PO DAILY 11/06/16 [History ] LORazepam [Ativan] 1 mg PO TID PRN 11/06/16 [History] Lactulose [Enulose] 10 gm PO DAILY PRN 11/06/16 [History] Lisinopril [Zestril] 5 mg PO DAILY 11/06/16 [History] Loratadine [Allergy Relief] 10 mg PO DAILY PRN 11/06/16 [History] Metoprolol [Lopressor] 100 mg PO BID 11/06/16 [History] Ondansetron HCl [Zofran] 4 mg PO Q6H 11/06/16 [History] Potassium Chloride [Klor-Con 10] 10 meq PO DAILY 11/06/16 [History] Ranitidine HCl [Zantac] 40 mg PO HS 11/06/16 [History] Tiotropium [place] [Spiriva Respimat] 4 gm IH DAILY 11/06/16 [History] 3 Allergy/AdvReac Type Severity Reaction Status Date / Time ipratropium [From DuoNeb] AdvReac Vomiting Verified 10/28/16 05:40 roflumilast [From Daliresp] AdvReac Vomiting Verified 10/28/16 05:40 All Systems PM: A 10-system review of systems was performed and is negative for pertinent findings except as documented above in the HPI. Review of systems: Review of systems from his [facility] admission 10 days ago was reviewed and revised as below. Gen.: His weight has decreased from 75.5-3 kg on 10/29/2016 to present weight of 70.931 kg today. Cardiovascular: He has history of hypertension. He reports 2 myocardial infarctions in the past with most recent one June 2015. He had a LAVELLE placed in the mid RCA at the time. There was an occluded proximal RCA in-stent restenosis which was felt to be the culprit lesion. There were previous stents seen in the proximal and mid RCA. LVEF was 55%. He had an echocardiogram June 2015 which showed LVEF of 45-50% with mild LV diastolic dysfunction. There is no significant valvular dysfunction seen. He denies DVT or pulmonary embolus Respiratory: He smoked from age [age] up to 2 packs per day. He has a diagnosis of COPD and wears oxygen at home. He has been diagnosed with GOMEZ but CPAP was removed by the supply company because of noncompliant usage. GI: Denies disorders of his liver gallbladder or exocrine pancreas : He has chronic kidney disease stage III and follows with a [place] [employer] chief engineer. He has a kidney stone. He denies other kidney or bladder disorders. Neurologic: He denies large distribution strokes or seizures. Endocrine: He was diagnosed with DM 2 approximately 2012. He has hyperlipidemia but no known thyroid disease. Hematology/oncology: He was diagnosed with CLL approximately 2 years ago and squamous cell lung cancer approximately 3 years ago. The lung cancer is stage IV. He had squamous cell cancer removed from his lower lip 2013. He was diagnosed with neuroendocrine carcinoma the scalp in 2016. He follows with [facility] oncologist. He has anemia with anemia testing done 10/29/2016 showing iron 16, transferrin saturation 7%, transferrin 168, ferritin 154, B12 397, and folate 12.4.. Psychiatric: He has anxiety but no significant depression or other mental health issues Musk skeletal: He has arthritis but no other documented bone joint or muscle disorders. - Constitutional Vitals: Temp Pulse Resp BP Pulse Ox 99.1 F 71 18 105/54 94 11/07/16 10:00 11/07/16 10:00 11/07/16 10:00 11/07/16 10:00 11/07/16 10:00 Exam: Note: He is well-developed well-nourished male lying quietly in bed who appears in no acute distress. HEENT: Head is akinetic and normocephalic. Eyes: EOMI. There is no scleral icterus. Mouth: Mucosa slightly dry. Neck: There is no thyromegaly or adenopathy noted. Heart: Regular rate severity per minute. No murmurs or gallops are heard. Lungs: No wheezes or crackles are heard. Abdomen: Abdomen is slightly tympanitic to percussion. It is nontender to palpation. No masses or guarding are noted. Extremities: There is no cyanosis edema or clubbing noted. Dorsalis pedis and posterior tibial pulses are trace palpable bilaterally. Neurologic: Mental status: He is alert and oriented and seems to be a reliable historian. Cranial nerves: Smile is symmetric. Forehead wrinkles bilaterally. Tongue protrudes midline. EOMI. Motor: There is no pronator drift. He has cogwheeling and rigidity on passive range of motion of his elbows and wrists. He has mild tremor at rest. Cerebellar: Finger to nose is intact bilaterally. Skin: Warm and dry. Internal Med - H&P Results - Labs CBC & Chem 7: 11/06/16 15:36 11/06/16 15:36
--- NOTE | 2016-11-07 12:19 | Discharge Summary ---
Date of Encounter: 11/07/16 Time of Encounter: 11:35 - Discharge Diagnosis (1) Fever Priority: Primary Status: Acute Qualifiers: Fever type: unspecified Qualified Code(s): R50.9 - Fever, unspecified (2) Parkinsons disease Priority: Secondary Status: Acute (3) Anemia Priority: Secondary Status: Chronic Qualifiers: Anemia type: iron deficiency Iron deficiency anemia type: unspecified iron deficiency Qualified Code(s): D50.9 - Iron deficiency anemia, unspecified - Discharge Medications Prescriptions: Ascorbic Acid [Vitamin C] 500 mg PO DAILY #30 tablet.er Ferrous Sulfate 325 mg PO DAILY #30 tablet. Tamsulosin [Flomax] 0.4 mg PO DAILY #30 cap.er.24h Home Medications: Albuterol Sulfate [Albuterol Inhaler] 1 - 2 puff IH Q4HR PRN 11/06/16 [History] Aspirin [Lo-Dose Aspirin EC] 81 mg PO DAILY 11/06/16 [History] Budesonide/Formoterol 160/4.5 [Symbicort 160/4.5] 2 puff IH BIDR 11/06/16 [ History] Clopidogrel [Plavix] 75 mg PO DAILY 11/06/16 [History] Digoxin [Lanoxin] 0.125 mg PO DAILY 11/06/16 [History] Docusate [Colace] 100 mg PO DAILY 11/06/16 [History] GlipiZIDE [Glucotrol Xl] 2.5 mg PO BID 11/06/16 [History] Guaifenesin [Guaifenesin ER] 600 mg PO BID 11/06/16 [History] Isosorbide MONOnitrate [Isosorbide Mononitrate] 30 mg PO DAILY 11/06/16 [History ] LORazepam [Ativan] 1 mg PO TID PRN 11/06/16 [History] Lactulose [Enulose] 10 gm PO DAILY PRN 11/06/16 [History] Lisinopril [Zestril] 5 mg PO DAILY 11/06/16 [History] Loratadine [Allergy Relief] 10 mg PO DAILY PRN 11/06/16 [History] Metoprolol [Lopressor] 100 mg PO BID 11/06/16 [History] Ondansetron HCl [Zofran] 4 mg PO Q6H 11/06/16 [History] Potassium Chloride [Klor-Con 10] 10 meq PO DAILY 11/06/16 [History] Ranitidine HCl [Zantac] 40 mg PO HS 11/06/16 [History] Tiotropium Delia [Spiriva Respimat] 4 gm IH DAILY 11/06/16 [History] Ascorbic Acid [Vitamin C] 500 mg PO DAILY #30 tablet.er 11/07/16 [Rx] Ferrous Sulfate 325 mg PO DAILY #30 tablet.dr 11/07/16 [Rx] Furosemide [Lasix] 20 mg PO DAILY #0 11/07/16 [Rx] Tamsulosin [Flomax] 0.4 mg PO DAILY #30 cap.er.24h 11/07/16 [Rx] Allergies/Adverse Reactions: 3 Allergy/AdvReac Type Severity Reaction Status Date / Time ipratropium [From DuoNeb] AdvReac Vomiting Verified 10/28/16 05:40 roflumilast [From Daliresp] AdvReac Vomiting Verified 10/28/16 05:40 Date of admission: 11/06/16 17:41 Primary care physician: Jaret Chu MD Consults: 11/06/16 19:00 Consult to Community Nurse [CONS] Routine Reason for SW Consult: Discharge planning - Patient Status Disposition: Home Health Service Condition: Good Overall status at discharge: patient is progressing back to baseline - Discharge Instructions Follow Up With: Jaret Chu MD [Primary Care Provider] - 1 week - Diet and Activity Activity: resume usual activities as tolerated Diet: advance to your usual diet Hospital course: Mr. Ruvalcaba is a 70 year old male who was brought to emergency room after he was found to have fever at home with multiple episodes of diarrhea. He was evaluated emergency room and had fever of 103 documented. He was admitted to [facility] floor for ongoing care needs. Initial orders were written the emergency room physician. I saw him on November 07 and performed a history physical and discharge. He was given IV Levaquin and vancomycin in emergency room. When I saw him I did not see clear evidence for bacterial infection. I suspect the diarrhea was viral etiology if infectious. Not have diarrhea after admission. I did not feel additional antibiotics were clearly indicated at this time. I explained to the family that his leukocytosis was primarily if not completely due to CLL. There was no bandemia noted. His mental status returned to baseline by the time I saw him. He felt stable for discharge home which I felt was reason. He will follow with his PCP Dr. Chu within 1 week. I explained to the family he had evidence of Parkinson's disease but that no treatment was a reasonable option at this time. He had 100 mL of urine on post void residual checked by bladder scan. He will be started on Flomax empirically. The family reports a urology appointment is scheduled in a few weeks. Because of his azotemia the family inquired if the Lasix dose could be reduced to 20 mg daily with an additional 20-40 mg given when necessary. He was started on ferrous sulfate with vitamin C for iron deficiency anemia found on his previous admission. - Time Spent with Patient Total time spent providing and/or coordinating discharge services: - Constitutional Vitals: Temp Pulse Resp BP Pulse Ox 99.1 F 71 18 105/54 94 11/07/16 10:00 11/07/16 10:00 11/07/16 10:00 11/07/16 10:00 11/07/16 10:00
== END 2016-11-07 13:30 | disposition home health service (06) ==
LOC: INPPIK 14:57 → EMEROOPIK 14:57 → INPPIK 18:23
PROVIDERS: ADMIT Internal Medicine; ATTEND Internal Medicine